=== PATIENT | female | born 1990 | race Caucasian/White ===

== ENCOUNTER 2019-11-08 16:05 | Emergency (ER) | payer SELFPAY ==
[~2019-11-08] VITALS: Ht 170.2 cm; Wt 80.0 kg
[2019-11-08 16:23] VITALS: BP 190/117
--- NOTE | 2019-11-08 16:33 | PHYS DOC ---
Adult General Chief Complaint Chief Complaint: SHOULDER INJURY [facility] HPI Patient is a 28 year old female who presents with right shoulder pain that started last night when she was throwing firewood. She states that her shoulder suddenly's hurt really bad, and she lost range of motion shoulder. She denies ever dislocating her shoulder. Denies any medical history. Denies any other symptoms. Complete ROS were reviewed and found to be within normal limits, except as documented in the HPI Current Medications Current Medications Current Medications Medications (Trade) Dose Ordered Sig/Lizet Start Time Stop Time Status Last Admin Dose Admin Fentanyl Citrate (Fentanyl 2ml Vial) 75 mcg 1X ONCE 11/08/19 16:30 11/08/19 16:32 DC 11/08/19 16:38 75 MCG Allergies Allergies Allergies Coded Allergies Type Severity Reaction Last Updated Verified No Known Drug Allergies 11/08/19 No Physical Exam Physical Exam Constitutional: Well developed, well nourished, appears in distress. HENT: Normocephalic, atraumatic, bilateral external ears normal, oropharynx moist, no oral exudates, nose normal. [] Eyes: PERRLA, EOMI, conjunctiva normal, no discharge. [] Skin: Warm, dry, no erythema, no rash. [] Back: No tenderness, no CVA tenderness. [] Extremities: Tenderness to posterior shoulder, no edema, ROM reduced. Neurologic: Alert and oriented X 3, normal motor function, normal sensory function, no focal deficits noted. [] Psychologic: Affect normal, judgement normal, mood normal. [] Current Patient Data Vital Signs Vital Signs Date Time Temp Pulse Resp B/P (MAP) Pulse Ox O2 Delivery O2 Flow Rate FiO2 11/08/19 16:38 18 98 11/08/19 16:23 98.2 112 190/117 (141) 98.2 EKG EKG [] Radiology/Procedures Radiology/Procedures [][facility] [address] [place] [address] IMAGING REPORT Signed PATIENT: LAURA FIGUEROA ACCOUNT: [id number] : 1990 LOCATION: ER AGE: 28 SEX: F EXAM STATUS: REG ER ORD. PHYSICIAN: OLYA TAPIA APRN REASON: R shoulder pain after throwing firewood PROCEDURE: SHOULDER 2+V RIGHT EXAM: 3 Views Right Shoulder DATE: 11/08/2019 4:29 PM INDICATION: Right shoulder pain, injury COMPARISON: No Prior FINDINGS: There is no evidence for acute fracture or dislocation. AC joint is congruent. Humeral head is not high riding. Minimal AC joint degenerative change. IMPRESSION: 1. No acute fracture or dislocation. Electronically signed by: Roly Myers MD (11/08/2019 5:37 PM) [facility] [place]CTATED and SIGNED BY: ROLY MYERS MD DATE: 11/08/19 7072 Course & Med Decision Making Course & Med Decision Making Pertinent Labs and Imaging studies reviewed. (See chart for details) Will get imaging and give IM Fentanyl. Will put in sling and have follow up with orthopedics. Dragon Disclaimer Dragon Disclaimer This electronic medical record was generated, in whole or in part, using a voice recognition dictation system. Departure Departure Impression: Primary Impression: Shoulder pain, right Disposition: HOME, SELF-CARE Condition: STABLE Referrals: NO PCP (PCP) ELINA HOU MD Patient Instructions: Rotator Cuff Injury Additional Instructions: Thank you for visiting [facility]. We appreciate you trusting us with your care. If any additional problems come up don't hesitate to return to visit us. Please follow up with your primary care provider so they can plan additional care if needed and know about the problem that you had. If symptoms worsen come back to the Emergency Department. Any concerning symptoms that start such as chest pain, shortness of air, weakness or numbness on one side of the body, running high fevers or any other concerning symptoms return to the ER. Please fill your medications at any pharmacy and follow the prescription instructions. Scripts Hydrocodone/Apap 5-325 (NORCO 5-325 TABLET) 1 Each Tablet 1 TAB PO PRN Q6HRS PRN for PAIN for 3 Days, #10 TAB 0 Refills Prov: OLYA TAPIA APRN 11/08/19 Problem Qualifiers Primary Impression: Shoulder pain, right Chronicity: acute Qualified Codes: M25.511 - Pain in right shoulder OLYA TAPIA APRN Nov 08, 2019 16:33
[2019-11-08] MEDS: fentaNYL PF VIAL 100 MCG/2 ML VIAL IM ONE (16:38)
--- NOTE | 2019-11-08 17:40 | RAD ---
EXAM: 3 Views Right Shoulder DATE: 11/08/2019 4:29 PM INDICATION: Right shoulder pain, injury COMPARISON: No Prior FINDINGS: There is no evidence for acute fracture or dislocation. AC joint is congruent. Humeral head is not high riding. Minimal AC joint degenerative change. IMPRESSION: 1. No acute fracture or dislocation. Electronically signed by: Roly Darling MD (11/08/2019 5:37 PM) [facility] [place]
[2019-11-08] MEDS ORDERED: HYDR-3164 PO (17:44)
== END 2019-11-08 17:54 | disposition home or self-care (01) ==
LOC: ER 16:05
DX: M25.511 Pain in right shoulder (principal)
CPT/HCPCS: 73030; 96372; 99284; J3010